=== PATIENT | female | born 2000 | race Caucasian/White ===

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

== ENCOUNTER 2023-02-04 09:21 | Emergency (ER) | payer OTHER, SELFPAY ==
[2023-02-04 09:22] VITALS: BP 120/76; PULSE 107; RESP 18; TEMP 36.6; O2SAT 100
[2023-02-04 10:33] LABS: Basophils Percent Auto 0.6 % (0.2-1.2); Eosinophils Absolute Auto 0.1 K/mm3 (0-0.3); Eosinophils Percent Auto 0.8 % (0-4.4); Hemoglobin 11.1 g/dL (12.0-15.0); Immature Granulocyte Absolute 0.01 K/mm3 (0.00-0.031); Immature Granulocyte Percent A 0.2 % (0-0.5); Lymphocytes Absolute Auto 3.93 K/mm3 (0.9-3.2); Lymphocytes Percent Auto 61.1 % (18.3-44.2); Mean Corpuscular HGB Conc 31.7 g/dl (32-36); Mean Corpuscular Hemoglobin 27.3 pg (26-34); Mean Corpuscular Volume 86.2 fl (80-100); Mean Platelet Volume 8.4 fl (7.4-10.4); Monocytes Absolute Auto 0.6 K/mm3 (0.1-0.6); Neutrophils Absolute Auto 1.8 K/mm3 (1.3-6.7); Neutrophils Percent Auto 27.3 % (45.5-73.1); Platelet Count Result 277 k/mm3 (150-375); Red Blood Count 4.06 M/mm3 (4.2-5.4); Red Cell Distribution Width 15.7 % (11.5-14.5); White Blood Count 6.4 K/mm3 (4.5-10.0)
[2023-02-04 10:38] LABS: Alanine Aminotransferase 15 U/L (6-35); Albumin Level 4.1 g/dL (3.5-5.1); Alkaline Phosphatase 68 U/L (38-126); Anion Gap 6 mmol/L (8-16); Aspartate Amino Transferase 24 U/L (14-36); Bilirubin,Total 0.5 mg/dL (0.2-1.3); Blood Urea Nitrogen 14 mg/dL (7-17); Calcium 8.6 mg/dL (8.4-10.2); Carbon Dioxide 28 mmol/L (22-30); Chloride 104 mmol/L (98-107); Estimated CRCL calculation 94 ml/min; Estimated Glomerular Filt Rate > 60; Glucose 83 mg/dL (65-110); Potassium 3.9 mmol/L (3.4-5.0); Prothrombin Time 13.8 Seconds (11.1-14.7); Sodium 138 mmol/L (137-145)
--- NOTE | 2023-02-04 10:39 | ED.FEMALEGU ---
HPI - Female Genitourinary General Chief complaint: Vaginal Bleeding Stated complaint: preg, vag bleeding Time Seen by Provider: 02/04/23 09:30 History of Present Illness HPI Narrative: 22-year-old female present to the emergency department for evaluation of vaginal bleeding. Patient reports that she has had positive home pregnancies since 01/21. Patient began having some abdominal cramping and vaginal bleeding this morning. Patient states she had the cramping that started about 830 and at 9 AM she had a large amount of blood that she passed. Patient states since then the cramping has resolved and patient is having no significant bleeding. Related Data Home Medications Medication Instructions Recorded Confirmed [id number] 1 mg 1 tablet PO DAILY 01/15/21 12/26/21 tablet dexamethasone 6 mg tablet 6 mg PO DAILY 12/21/21 12/21/21 escitalopram oxalate 10 mg tablet 10 mg PO DAILY 12/21/21 12/21/21 ursodiol 300 mg capsule 300 mg PO BID 12/21/21 12/21/21 Allergies Allergy/AdvReac Type Severity Reaction Status Date / Time latex Allergy Unknown Other Verified 02/04/23 10:14 Review of Systems Review of Systems: All systems reviewed & are unremarkable except as noted in HPI and below PMFSH Past Medical History Medical History (Updated 02/04/23 @ 12:25 by Santana Andre MD) ADHD Bipolar disorder Chlamydia Depression Family History Family History (Updated 01/18/21 @ 17:14 by Meghan Allen RN) Mother Breast cancer Cervical cancer Father Diabetes mellitus Lung cancer Prostate carcinoma Grandparent Heart & renal disease, hypertensive benign with chronic kidney disease Social History Social History Smoking status: Current every day smoker Tobacco type: e-cigarettes/vaping Second hand tobacco smoke exposure: Yes Substance use: never Spiritual care concerns: No Exam Narrative: APPEARANCE: Well appearing, no pain, no distress, well-nourished. HEAD: normocephalic, atraumatic. EYES: PERRLA/EOMI, conjunctivae clear. NOSE: Normal no drainage NECK: Supple. No adenopathy, no masses. RESPIRATORY: Airway patent, respirations nonlabored. Clear to auscultation bilaterally, no rales, rhonchi, wheezing. CARDIOVASCULAR: Regular rate and rhythm without murmurs rubs or gallops. ABDOMINAL: Soft, suprapubic tenderness to palpation Pelvic: Small amount of blood in the vaginal vault, normal-appearing cervix, no evidence of injury and no rapid refilling MUSCULOSKELETAL: Moves all extremities. Strength/ROM intact, No edema, No calf tenderness. NEURO: Alert. Cranial nerves II through XII intact. Grossly intact SKIN: Warm, dry. Normal Color Course Course Emergency Course: 22-year-old female to the ED for evaluation of vaginal bleeding with a home test. Patient reports pain that has resolved and patient's bleeding has improved. Patient's bedside and beta hCG were negative. Patient is afebrile and leukocytosis. Patient hemoglobin is stable 11.1. No significant abnormalities on the patient's CMP. Urine was contaminated with blood, urine culture is pending. Patient was updated the results of her work-up was encouraged of close follow-up with RADIOLOGY CLERK. All question concerns were addressed and patient was well-appearing at time of discharge. Suspect menstrual bleeding versus early miscarriage. With negative to low concern for ectopic but patient was encouraged of close follow-up with RADIOLOGY CLERK Vital Signs Vital signs: Vital Signs Temperature 97.9 F 02/04/23 09:22 Pulse Rate 107 H 02/04/23 09:22 Respiratory Rate 18 02/04/23 09:22 Blood Pressure 120/76 02/04/23 09:22 Pulse Oximetry 100 02/04/23 09:22 Oxygen Delivery Room Air 02/04/23 09:22 Temperature 97.9 F 02/04/23 09:22 Pulse Rate 83 02/04/23 11:27 Respiratory Rate 16 02/04/23 11:27 Blood Pressure 101/86 02/04/23 11:27 Pulse Oximetry 100 02/04/23 11:27 Oxygen
[2023-02-04 10:54] LABS: Beta HCG Quantitative < 2.39 mIU/ML
[2023-02-04 10:55] LABS: Appearance Urine Turbid (Clear); Bacteria Urine 1+ /hpf; Color Urine Red (Yellow); Need Manual Microscopic Reviewed; Non Pathogenic Casts 0-2; RBC Urine >100 /hpf (0-2); Squamous Epithelial Cell Urine Many /hpf (Few); WBC Urine 21-50 /hpf
[2023-02-04 11:01] LABS: Add Urine Microscopic? YES
[2023-02-04 11:27] VITALS: BP 101/86; PULSE 83; RESP 16; O2SAT 100
== END 2023-02-04 12:36 | disposition home or self-care (01) ==
PROVIDERS: Emergency Provider Emergency Medicine
DX: N93.9 Abnormal uterine and vaginal bleeding, unspecified (principal); F17.290 Nicotine dependence, other tobacco product, uncomplicated; F90.9 Attention-deficit hyperactivity disorder, unspecified type; F32.A Depression, unspecified
CPT/HCPCS: 36415; 80053; 81001; 81025; 84702; 85025; 85610; 85730; 87077; 87086; 87088; 87186; 99283

== ENCOUNTER 2023-05-24 10:46 | Emergency (ER) | payer SELFPAY ==
--- NOTE | ~2023-05-24 | US_ITS ---
CORRECTED REPORT corrected examination description [facility] [place]27[place]23 This report was recreated on 05/27/23. Original report was D CUTTER EXAMINATION: US OB <= 14 weeks fetus w TV DATE: 05/24/2023 13:48 INDICATION: Vaginal bleeding during first trimester TECHNIQUE: Real-time pelvic ultrasound utilizing both a transvaginal and transabdominal probe was performed. The interpreting radiologist was not present for the study. COMPARISON: None. FINDINGS: The uterus measures 10.0 x 5.5 x 6.0 cm. There is an intrauterine gestational sac. A yolk sac and pole are identified. The crown rump length measures 4- 5 mm, which correlates with an estimated gestational age of 6 weeks and 1 days. heart motion is identified measuring 85 beats per minute (bpm) by M-mode Doppler. Minimal amount of anechoic fluid within the endocervical canal measuring up to 1 mm in maximal thickness. The right ovary measures 2.4 x 1.6 x 2.6 cm. The left ovary measures 6.2 x 2.3 x 5.8 cm. 2.9 cm thick-walled centrally anechoic likely corpus luteum cyst in the left ovary with prominent peripheral vascular flow on color Doppler. On cine imaging in the transverse plane there is a single thin partial internal septation. A slightly smaller 2.2 cm thick-walled and peripherally hypervascular likely corpus luteum cyst in the left ovary. There is no free fluid in the pelvis. IMPRESSION: 1. Single living fetus with heart rate of 85 bpm. 2. Gestational age by ultrasound of 6 weeks 1 day(s) +/- 4 day(s) with ultrasound estimated date of delivery (JOSIE) of 01/16/2024. Reviewed, dictated and finalized at location A. D CUTTER MTDD IMPRESSION: 1. Single living fetus with heart rate of 85 bpm. 2. Gestational age by ultrasound of 6 weeks 1 day(s) +/- 4 day(s) with ultraso und estimated date of delivery (JOSIE) of 01/16/2024.
[2023-05-24 10:58] VITALS: BP 113/64; PULSE 97; RESP 18; TEMP 36.5; O2SAT 100
[2023-05-24 11:25] LABS: Basophils Percent Auto 0.5 % (0.2-1.2); Eosinophils Percent Auto 0.5 % (0-4.4); Hematocrit 34.3 % (37.0-47.0); Hemoglobin 11.1 g/dL (12.0-15.0); Immature Granulocyte Absolute 0.01 K/mm3 (0.00-0.031); Immature Granulocyte Percent A 0.2 % (0-0.5); Lymphocytes Absolute Auto 2.21 K/mm3 (0.9-3.2); Lymphocytes Percent Auto 34.1 % (18.3-44.2); Mean Corpuscular HGB Conc 32.4 g/dl (32-36); Mean Corpuscular Volume 86.6 fl (80-100); Mean Platelet Volume 8.8 fl (7.4-10.4); Monocytes Absolute Auto 0.6 K/mm3 (0.1-0.6); Monocytes Percent Auto 9.2 % (2.6-8.5); Neutrophils Absolute Auto 3.6 K/mm3 (1.3-6.7); Neutrophils Percent Auto 55.5 % (45.5-73.1); Platelet Count Result 287 k/mm3 (150-375); Red Blood Count 3.96 M/mm3 (4.2-5.4); Red Cell Distribution Width 13.8 % (11.5-14.5); White Blood Count 6.5 K/mm3 (4.5-10.0)
--- NOTE | 2023-05-24 11:41 | ED.FEMALEGU ---
HPI - Female Genitourinary General Chief complaint: Vaginal Bleeding Stated complaint: 7 weeks preg, spotting Time Seen by Provider: 05/24/23 11:02 Source: patient Mode of arrival: ambulatory Limitations: no limitations History of Present Illness HPI Narrative: 23-year-old female presenting for concerns for vaginal bleeding and abdominal pain in . She is 7 weeks she reports over the last 2 days she has had some intermittent cramping abdominal pain left lower quadrant. She was make sure it is not an ectopic . Also had some light vaginal spotting over the last day or so. No other complaints. She also wants some STD testing but denies any discharge from some light bleeding Related Data Home Medications Medication Instructions Recorded Confirmed [id number] 1 mg 1 tablet PO DAILY 01/15/21 12/26/21 tablet dexamethasone 6 mg tablet 6 mg PO DAILY 12/21/21 12/21/21 escitalopram oxalate 10 mg tablet 10 mg PO DAILY 12/21/21 12/21/21 ursodiol 300 mg capsule 300 mg PO BID 12/21/21 12/21/21 Allergies Allergy/AdvReac Type Severity Reaction Status Date / Time latex Allergy Unknown Other Verified 02/04/23 10:14 Review of Systems Review of Systems: All systems reviewed & are unremarkable except as noted in HPI and below (HPI) PMFSH Past Medical History Medical History ADHD Bipolar disorder Chlamydia Depression Family History Family History Mother Breast cancer Cervical cancer Father Diabetes mellitus Lung cancer Prostate carcinoma Grandparent Heart & renal disease, hypertensive benign with chronic kidney disease Social History Social History Smoking status: Current every day smoker Tobacco type: e-cigarettes/vaping Second hand tobacco smoke exposure: Yes Substance use: never Spiritual care concerns: No Exam Narrative: Constitutional: Generally well appearing, no acute distress Head: Atraumatic, no deformities. Eyes: Pupils equal, round, and reactive to light. Neck: Supple, no tracheal deviation, no JVD. ENMT: Mucous membranes moist Cardiovascular: S1, S2 auscultated. No murmurs, rubs, or gallops. No S3/S4. Normal Distal pulses. No peripheral edema. Respiratory: Lung sounds equal. No wheezes, rales, or rhonchi. Gastrointestinal: Abdomen was soft with very mild tenderness in the left lower quadrant. Non-distended. No rebound or guarding. Genitourinary: Deferred Musculoskeletal: Normal muscle tone and bulk. No obvious deformities or tenderness over extremities. Skin: No rashes. Neurological: Strength 5/5 in extremities. Cranial nerves I-XII grossly intact. Distal sensation intact. Mental Status: Awake, alert and oriented x3. Follows commands Course Vital Signs Vital signs: Vital Signs Temperature 36.5 C 05/24/23 10:58 Pulse Rate 97 05/24/23 10:58 Respiratory Rate 18 05/24/23 10:58 Blood Pressure 113/64 05/24/23 10:58 Pulse Oximetry 100 05/24/23 10:58 Oxygen Delivery Room Air 05/24/23 10:58 Temperature 36.5 C 05/24/23 10:58 Pulse Rate 118 H 05/24/23 12:07 Respiratory Rate 18 05/24/23 10:58 Blood Pressure 107/41 L 05/24/23 12:07 Pulse Oximetry 100 05/24/23 10:58 Oxygen Delivery Room Air 05/24/23 10:58 MDM - Female Genitourinary MDM Narrative Medical decision making narrative: 23-year-old female presenting for concerns for ectopic . Approximately 7 weeks based on last menstrual. Has some intermittent left lower quadrant abdominal cramping. Exam shows normal vitals, some very mild tenderness in the left lower quadrant. Deferred pelvic exam patient. Concern for miscarriage, ectopic . Obtaining ultrasound pelvic, quantitative HCG, Rh blood typing, CBC. Also obtained gonorrhea and chlamydia urine swabs at patient's
[2023-05-24 12:05] VITALS: BP 105/55; PULSE 86
[2023-05-24 12:06] VITALS: BP 106/55; PULSE 96
[2023-05-24 12:07] VITALS: BP 107/41; PULSE 118
--- NOTE | 2023-05-24 12:12 | PC.NURSE ---
Attempted heart tones for 5 minutes. Able to get readings of 203, 178, and 160 for 5seconds, unable to confirm with counting for 1 minute. Pt aware of results and aware of US order for confirmation.
[2023-05-24 13:54] LABS: Chlamydia trachomatis NOT DETECTED (NOT DETECTE); Neisseria gonorrhoeae PCR NOT DETECTED (NOT DETECTE)
[2023-05-24 14:49] VITALS: BP 102/67; PULSE 99; RESP 18; O2SAT 100
== END 2023-05-24 14:50 | disposition home or self-care (01) ==
PROVIDERS: Emergency Provider Emergency Medicine
DX: O20.0 Threatened abortion (principal); O99.341 Other mental disorders complicating pregnancy, first trimester; F90.9 Attention-deficit hyperactivity disorder, unspecified type; F31.9 Bipolar disorder, unspecified; O99.331 Smoking (tobacco) complicating pregnancy, first trimester; F17.290 Nicotine dependence, other tobacco product, uncomplicated; Z3A.01 Less than 8 weeks gestation of pregnancy
CPT/HCPCS: 36415; 76801; 76817; 84702; 85025; 85461; 86850; 86900; 86901; 87491; 87591; 99284

== ENCOUNTER 2023-10-04 07:02 | Emergency (ER) | payer OTHER, SELFPAY ==
[2023-10-04 07:01] VITALS: BP 96/63; PULSE 93; RESP 18; TEMP 36.8; O2SAT 100
[2023-10-04 07:31] LABS: Basophils Percent Auto 0.3 % (0.2-1.2); Eosinophils Percent Auto 0.3 % (0-4.4); Hematocrit 28.2 % (37.0-47.0); Hemoglobin 8.9 g/dL (12.0-15.0); Immature Granulocyte Absolute 0.07 K/mm3 (0.00-0.031); Immature Granulocyte Percent A 1.2 % (0-0.5); Lymphocytes Percent Auto 32.8 % (18.3-44.2); Mean Corpuscular HGB Conc 31.6 g/dl (32-36); Mean Corpuscular Hemoglobin 27.3 pg (26-34); Mean Corpuscular Volume 86.5 fl (80-100); Mean Platelet Volume 8.3 fl (7.4-10.4); Monocytes Absolute Auto 0.5 K/mm3 (0.1-0.6); Neutrophils Absolute Auto 3.3 K/mm3 (1.3-6.7); Neutrophils Percent Auto 56.4 % (45.5-73.1); Platelet Count Result 224 k/mm3 (150-375); Red Blood Count 3.26 M/mm3 (4.2-5.4); Red Cell Distribution Width 13.3 % (11.5-14.5); White Blood Count 5.8 K/mm3 (4.5-10.0)
[2023-10-04 07:40] LABS: Alanine Aminotransferase 9 U/L (6-35); Albumin Level 3.5 g/dL (3.5-5.1); Alkaline Phosphatase 65 U/L (38-126); Anion Gap 6 mmol/L (4-12); Aspartate Amino Transferase 19 U/L (14-36); Bilirubin,Total 0.4 mg/dL (0.2-1.3); Blood Urea Nitrogen 5 mg/dL (7-17); Calcium 8.3 mg/dL (8.4-10.2); Carbon Dioxide 23 mmol/L (22-30); Chloride 106 mmol/L (98-107); Estimated CRCL calculation 134 ml/min; Estimated Glomerular Filt Rate > 60; Glucose 75 mg/dL (65-110); Potassium 3.7 mmol/L (3.4-5.0); Sodium 135 mmol/L (137-145)
[2023-10-04 08:20] LABS: Appearance Urine Cloudy (Clear); Bacteria Urine 1+ /hpf; Bilirubin Urine Negative (Negative); Blood Urine Negative (Negative); Color Urine Dark Yellow (Yellow); Glucose Urine UA Negative (Negative); Ketones Urine Negative (Negative); Leukocyte Esterase Ur 2+ LEU/UL (Negative); Need Manual Microscopic Reviewed; Nitrate Urine Negative (Negative); Non Pathogenic Casts 0-2; Protein Urine Trace mg/dL (Negative); RBC Urine 0-2 /hpf (0-2); Specific Grav Ur 1.022 (1.001-1.035); Squamous Epithelial Cell Urine Many /hpf (Few); WBC Urine 51-100 /hpf (0-3); pH Urine 6.5 (5.0-9.0)
[2023-10-04 08:27] LABS: Add Urine Microscopic? YES
--- NOTE | 2023-10-04 09:02 | ED.GENADULT ---
HPI - General Adult General Chief complaint: Extremity Problem,Nontraumatic Stated complaint: numb legs Time Seen by Provider: 10/04/23 07:11 Source: patient Mode of arrival: ambulatory Limitations: no limitations History of Present Illness HPI narrative: 23-year-old 2 para 1 about 25 weeks of gestation was brought in from work place with a complains of bilateral leg numbness. Patient states that she went to work was standing on her feet and she fell both the legs were numb. She also stated that she was short of breath. Upon arrival to the ER her symptoms completely resolved. She denies any fever or chills no history of nausea or vomiting. She works at [employer]. Related Data Home Medications Medication Instructions Recorded Confirmed [id number]-[id number]-[id number] 1 mg 1 tablet PO DAILY 01/15/21 10/04/23 tablet Allergies Allergy/AdvReac Type Severity Reaction Status Date / Time latex Allergy Unknown Other Verified 10/04/23 07:06 Review of Systems Review of Systems: All systems reviewed & are unremarkable except as noted in HPI and below Constitutional: Constitutional: Reports no additional constitutional complaints Eyes: Eyes: Reports no additional eye complaints ENT: Reports system reviewed and no additional complaints, except as documented Cardiovascular: Cardiovascular: Reports no additional cardiovascular complaints Respiratory: Respiratory: Reports no additional respiratory complaints Gastrointestinal: Gastrointestinal: Reports no additional gastrointestinal complaints Musculoskeletal: Musculoskeletal: Reports as per HPI Neurologic: Reports system reviewed and no additional complaints, except as documented Psychiatric: Psychiatric: Reports no additional psychiatric complaints PMFSH Past Medical History Medical History ADHD Bipolar disorder Chlamydia Depression Family History Family History Mother Breast cancer Cervical cancer Father Diabetes mellitus Lung cancer Prostate carcinoma Grandparent Heart & renal disease, hypertensive benign with chronic kidney disease Social History Social History Smoking status: Current every day smoker Tobacco type: e-cigarettes/vaping Second hand tobacco smoke exposure: Yes Substance use: never Spiritual care concerns: No Exam Narrative: GENERAL: Well-appearing, well-nourished, and in no acute distress. HEAD: Normocephalic, atraumatic. EYES: PERRLA and EOMI. ENT: Nares clear, no rhinorrhea or epistaxis. Mucous membranes moist. NECK: Supple. CHEST: Clear to auscultation. No respiratory distress. HEART: Regular rate and rhythm. No murmur heard. Normal peripheral pulses. ABDOMEN: Soft, nontender, gravid abdomen EXTREMITIES: Normal range of motion. No edema. SKIN: Warm, dry, no rash. NEURO: No focal deficits. Alert and oriented x3. PSYCH: Normal mood and affect. Course Course Emergency Course: Patient feeling much better. She feels comfortable going home. She was ambulatory. Vital Signs Vital signs: Vital Signs Temperature 36.8 C 10/04/23 07:01 Pulse Rate 93 10/04/23 07:01 Respiratory Rate 18 10/04/23 07:01 Blood Pressure 96/63 L 10/04/23 07:01 Pulse Oximetry 100 10/04/23 07:01 Oxygen Delivery Room Air 10/04/23 07:01 Temperature 36.8 C 10/04/23 07:01 Pulse Rate 99 10/04/23 09:14 Respiratory Rate 16 10/04/23 09:14 Blood Pressure 130/75 10/04/23 09:14 Pulse Oximetry 100 10/04/23 09:14 Oxygen Delivery Room Air 10/04/23 07:01 Medical Decision Making Vital Signs Vital Signs: Vital Signs Temperature 36.8 C 10/04/23 07:01 Pulse Rate 93 10/04/23 07:01 Respiratory Rate 18 10/04/23 07:01 Blood Pressure 96/63 L 10/04/23 07:01 Pulse Oximetry 100 10/04/23 07:01 Oxygen Delivery Room Air
[2023-10-04 09:14] VITALS: BP 130/75; PULSE 99; RESP 16; O2SAT 100
== END 2023-10-04 09:15 | disposition home or self-care (01) ==
PROVIDERS: Emergency Provider Family Medicine
DX: O26.892 Other specified pregnancy related conditions, second trimester (principal); R20.0 Anesthesia of skin; O99.332 Smoking (tobacco) complicating pregnancy, second trimester; F17.290 Nicotine dependence, other tobacco product, uncomplicated; Z3A.25 25 weeks gestation of pregnancy
CPT/HCPCS: 36415; 80053; 81001; 85025; 87086; 87088; 99283

== ENCOUNTER 2023-10-26 15:09 | Outpatient (RCR) | payer OTHER, SELFPAY ==
[2023-10-26 16:11] VITALS: BP 100/59; PULSE 100
== END 2024-01-24 23:59 | disposition home or self-care (01) ==
LOC: ANHOBOP 15:09
PROVIDERS: Visit Provider Advanced Practice Midwife
DX: O36.8130 Decreased fetal movements, third trimester, not applicable or unspecified (principal); Z3A.27 27 weeks gestation of pregnancy
CPT/HCPCS: 59025

== ENCOUNTER 2024-01-01 09:20 | Inpatient (IN) | payer OTHER, SELFPAY ==
[2024-01-01] VITALS (40 sets, daily range): BP systolic 77–113; BP diastolic 35–74; PULSE 59–104; RESP 12–20; TEMP 36.4–36.6; O2SAT 99–100; BMI 26.6
--- NOTE | 2024-01-01 09:20 | LDADM ---
This patient, Apple Simms, was admitted to Labor/Delivery/Recovery 120 on 01/01/24 at 09:20. Plans for labor, pain management and were discussed with patient. Patient/family oriented to hospital policies and general routines including ID bracelet, bed and alarms, visiting hours, pain management, procedures, bathroom and other care routines, personal items, smoking policy, room service/diet and guest tray routines, infant security routines, and visiting hours. Patient/Family are encouraged to report perceived risks to care and to ask questions if they do not understand what they are told or what they should do. See OBIX for further documentation.
[2024-01-01 09:53] LABS: Basophils Percent Auto 0.4 % (0.2-1.2); Eosinophils Percent Auto 0.4 % (0-4.4); Hematocrit 34.1 % (37.0-47.0); Hemoglobin 10.5 g/dL (12.0-15.0); Immature Granulocyte Absolute 0.18 K/mm3 (0.00-0.031); Immature Granulocyte Percent A 2.1 % (0-0.5); Lymphocytes Absolute Auto 2.09 K/mm3 (0.9-3.2); Lymphocytes Percent Auto 24.5 % (18.3-44.2); Mean Corpuscular HGB Conc 30.8 g/dl (32-36); Mean Corpuscular Hemoglobin 25.9 pg (26-34); Mean Platelet Volume 8.7 fl (7.4-10.4); Monocytes Absolute Auto 0.8 K/mm3 (0.1-0.6); Monocytes Percent Auto 9.1 % (2.6-8.5); Neutrophils Absolute Auto 5.4 K/mm3 (1.3-6.7); Neutrophils Percent Auto 63.5 % (45.5-73.1); Platelet Count Result 211 k/mm3 (150-375); Red Blood Count 4.06 M/mm3 (4.2-5.4); Red Cell Distribution Width 22.7 % (11.5-14.5); White Blood Count 8.5 K/mm3 (4.5-10.0)
[2024-01-01] MEDS: ACETAMINOPHEN 500 MG TABLET 1000 MG PO (09:56)
[2024-01-01] MEDS: LACTATED RINGERS 1,000 ML 125 ML IV CONT ×2 (09:57→11:19)
[2024-01-01 10:29] LABS: Anisocytosis 1+; Macrocytosis 1+ (NORMAL); Platelet Estimate Adequate (Adequate); Schistocytes None Seen
[2024-01-01 10:43] LABS: HIV 1/2 Ab P24 Ag Result Negative (Negative)
[2024-01-01 11:12] LABS: Rapid Plasma Reagin Non-Reactive (NonReactive)
--- NOTE | 2024-01-01 11:27 | WPDANESEPPF ---
Anes - Initial Pre Proc Eval Procedure: Operation Date: 01/01/24 12:00 Proposed Procedures p Repeat Section - Willi Haney MD Date/Time: 01/01/24 11:27 Surgeon: Willi Haney MD Pre Op Diagnosis: Repeat Section Patient Data Age: 23 Gender: F Height: 1.68 m Weight: 75 kg Last Vital Signs Pulse 82 01/01/24 11:15 BP 108/63 01/01/24 11:15 Allergies Allergy/AdvReac Type Severity Reaction Status Date / Time latex Allergy Unknown Other Verified 12/31/23 10:41 Home Medications Medication Instructions Recorded Confirmed Type whptcgmh-uwy-[id number]-FA 1 mg 1 tablet PO DAILY 01/15/21 01/01/24 History tablet albuterol 90 mcg/actuation aerosol 90 mcg inhalation Q4H 12/05/23 01/01/24 History inhaler cyclobenzaprine 10 mg tablet 10 mg PO TID PRN Pain 12/05/23 01/01/24 History diphenhydramine HCl 25 mg capsule 50 mg PO HS PRN Insomnia 12/05/23 01/01/24 History (Benadryl) lurasidone 20 mg tablet 20 mg PO DAILY 12/05/23 01/01/24 History ursodiol 300 mg capsule 300 mg PO BID 12/05/23 01/01/24 History Laboratory Tests 01/01/24 09:48 WBC 8.5 K/mm3 (4.5-10.0) RBC 4.06 L M/mm3 (4.2-5.4) Hgb 10.5 L g/dL (12.0-15.0) Hct 34.1 L % (37.0-47.0) MCV 84.0 fl (80-100) MCH 25.9 L pg (26-34) MCHC 30.8 L g/dl (32-36) RDW 22.7 H % (11.5-14.5) Plt Count 211 k/mm3 (150-375) MPV 8.7 fl (7.4-10.4) Immature Gran % (Auto) 2.1 H % (0-0.5) Neut % (Auto) 63.5 % (45.5-73.1) Lymph % (Auto) 24.5 % (18.3-44.2) [place] % (Auto) 9.1 H % (2.6-8.5) Eos % (Auto) 0.4 % (0-4.4) Baso % (Auto) 0.4 % (0.2-1.2) Lymph # (Auto) 2.09 K/mm3 (0.9-3.2) [place] # (Auto) 0.8 H K/mm3 (0.1-0.6) Eos # (Auto) 0.0 K/mm3 (0-0.3) Baso # (Auto) 0.0 K/mm3 (0.0-0.1) Abs Immat Gran (auto) 0.18 H K/mm3 (0.00-0.031) Absolute Neuts (auto) 5.4 K/mm3 (1.3-6.7) Absolute Nucleated RBC 0.000 K/mm3 (0.0-0.012) Nucleated RBC % 0.0 % (0.0-0.2) Platelet Estimate Adequate (Adequate) Anisocytosis 1+ Macrocytosis 1+ (NORMAL) Schistocytes None seen RPR Non-reactive (NonReactive) HIV 1&2 Ab/P24 Ag 4thGn Negative (Negative) Blood Type O Positive Antibody Screen Negative Patient hx anesthesia problems: none Family hx anesthesia problems: none Results Review: All pre-operative results and documents have been reviewed as part of the pre-operative evaluation. [facility] Past Medical History Medical History ADHD Bipolar disorder Chlamydia Depression Family History Family History Mother Breast cancer Cervical cancer Father Diabetes mellitus Lung cancer Prostate carcinoma Grandparent Heart & renal disease, hypertensive benign with chronic kidney disease Social History Social History Years smoked: 3 Smoking status: Current every day smoker Tobacco type: e-cigarettes/vaping Second hand tobacco smoke exposure: Yes Substance use: former Do You Feel Safe in your Home?: Yes Lack of Transportation: No Lack of Food: Never True Current Housing: I Have Housing Concerned About Future Housing: No Difficulty Paying Gas/Electric Bills: No Difficulty Paying for Meds: No Currently Unemployed: No Education: Grade School Difficulty w/ Childcare or Family Care: No Spiritual care concerns: No Anes - Eval Final PreProcedure Day of Procedure 01/01/24 11:27 Patient weight: normal Heart: regular rate and rhythm Lungs: clear to auscultation Airway: Mallampati scale class II Neurological: alert and oriented Last oral intake: >/= 8 hours ASA classification: II Emergent: no Anesthetic plan: proceed Anesthesia type and monitor
[2024-01-01] MEDS: ONDANSETRON INJ 4 MG/2 ML VIAL IV PUSH (11:28)
[2024-01-01] MEDS: FAMOTIDINE 20 MG/2 ML VIAL IV PUSH (11:28)
--- NOTE | 2024-01-01 11:29 | WPDHPUPDATE1 ---
History and Physical Update Update Date/Time: 01/01/24 11:29 History and Physical has been reviewed, including an updated exam of the patient. There are NO changes in the patient's condition. Risks, benefits, and alternatives have been discussed and questions answered. Patient agrees to proceed with procedure.
--- NOTE | 2024-01-01 11:29 | PM.IMHP ---
H&P: HPI History of Present Illness Date/Time: 01/01/24 11:29 Chief Complaint: Term Narrative: 23-year-old multiparous female at term with previous deliveries. We have agreed to perform repeat .delivery The patient understands the details of the procedure. The procedure has been explained in detail. She understands the risks. She understands that injuries may occur that result in hospitalization, more surgery, and severe illness. She understands risk of hemorrhage and infection. She denies any chest pain or shortness of breath. She denies any nausea, vomiting, fever, chills. Review of Systems Review of Systems: All systems reviewed & are unremarkable except as noted in HPI and below Constitutional: Constitutional: Denies chills, Denies fatigue, Denies fever(s) and Denies weakness Eyes: Eyes: Denies blurry vision, Denies change in vision, Denies loss of peripheral vision, Denies loss of vision, Denies other visual disturbances and Denies eye pain ENT: Denies vertigo, Denies dizziness, Denies hearing loss, Denies mouth pain, Denies nasal obstruction, Denies neck mass and Denies neck pain Cardiovascular: Cardiovascular: Denies chest pain, Denies diaphoresis, Denies syncope, Denies leg edema and Denies dyspnea Respiratory: Respiratory: Denies chest congestion, Denies cough, Denies hemoptysis, Denies dyspnea and Denies wheezing Gastrointestinal: Gastrointestinal: Denies abdominal pain, Denies constipation, Denies diarrhea, Denies nausea and Denies vomiting Genitourinary: Genitourinary: Denies hematuria, Denies change in libido, Denies nocturia, Denies genital lesions, Denies flank pain and Denies urinary urgency Musculoskeletal: Musculoskeletal: Denies abnormal gait, Denies back pain, Denies myalgias, Denies arthralgias, Denies joint swelling, Denies muscle weakness and Denies neck pain Integumentary/Breasts: Skin/Breast: Denies swelling, Denies breast pain, Denies breast mass, Denies dry skin, Denies nipple discharge, Denies unusual bruising and Denies jaundice Neurologic: Denies Neuro-related abnormal movements, Denies Abnormal speech present, Denies abnormal gait, Denies behavioral changes, Denies confusion, Denies vertigo, Denies dizziness, Denies syncope, Denies loss of vision, Denies memory loss, Denies convulsions and Denies weakness Psychiatric: Psychiatric: Denies abnormal sleep pattern, Denies behavioral changes, Denies change in libido, Denies confusion, Denies depression, Denies anhedonia and Denies memory loss Endocrine: Endocrine: Reports no additional endocrine complaints, Denies change in libido and Denies fatigue Hematologic/Lymphatic: Hematologic/Lymphatic: Reports no additional hematologic/lymphatic complaints Allergic/Immunologic: Allergic/Immunologic: Reports no additional allergic/immunologic complaints and Denies wheezing PMFSH Past Medical History Medical History ADHD Bipolar disorder Chlamydia Depression Family History Family History Mother Breast cancer Cervical cancer Father Diabetes mellitus Lung cancer Prostate carcinoma Grandparent Heart & renal disease, hypertensive benign with chronic kidney disease Social History Social History Years smoked: 3 Smoking status: Current every day smoker Tobacco type: e-cigarettes/vaping Second hand tobacco smoke exposure: Yes Substance use: former Do You Feel Safe in your Home?: Yes Lack of Transportation: No Lack of Food: Never True Current Housing: I Have Housing Concerned About Future Housing: No Difficulty Paying Gas/Electric Bills: No Difficulty Paying for Meds: No Currently Unemployed: No Education: Grade School Difficulty w/ Childcare or Family Care: No Spiritual care concerns: No Meds Home Medic
[2024-01-01] MEDS: ceFAZolin 2 GM/D5W 50 ML 2 GM/50 ML BAG IVPB (12:01)
[2024-01-01] MEDS: OXYTOCIN 30 UNITS/NS 500 ML 30 UNITS/500 ML BAG 125 UNITS IV CONT (13:57)
--- NOTE | 2024-01-01 15:07 | OBPPTRN ---
Patient transferred to post room #286 via stretcher. Support person present. Oriented to unit, room, information board, rooming in, admission packet and security measures. Patient verbalizes understanding.
[2024-01-01] MEDS: KETOROLAC 15 MG/ML VIAL (*BKC) IV PUSH ×2 (16:23→22:28)
[2024-01-01] MEDS: ACETAMINOPHEN 325 MG TABLET 650 MG PO ×2 (16:23→22:28)
[2024-01-01] MEDS: SIMETHICONE 80 MG TAB.CHEW PO (16:23)
[2024-01-01] MEDS: DOCUSATE SODIUM 100 MG CAPSULE PO (16:24)
[2024-01-01] MEDS: DEXTROSE 5%/0.45% SOD CHL 1,000 ML 125 ML IV CONT (18:26)
[2024-01-01] MEDS: HYDROcodone/acetaminophen (*CRX) 5-325 MG TABLET 1 TAB PO (21:35)
[2024-01-01] MEDS: LIDOCAINE 5% PATCH 1 PATCH TRANSDERM (21:35)
[2024-01-02 04:20] VITALS: BP 98/70; PULSE 80; RESP 16; TEMP 36.7; O2SAT 100
[2024-01-02] MEDS: ACETAMINOPHEN 325 MG TABLET 650 MG PO ×4 (04:32→23:57)
[2024-01-02] MEDS: KETOROLAC 15 MG/ML VIAL (*BKC) IV PUSH (04:32)
[2024-01-02 05:26] LABS: Basophils Percent Auto 0.2 % (0.2-1.2); Eosinophils Percent Auto 0.4 % (0-4.4); Hematocrit 27.8 % (37.0-47.0); Hemoglobin 8.8 g/dL (12.0-15.0); Immature Granulocyte Absolute 0.12 K/mm3 (0.00-0.031); Immature Granulocyte Percent A 1.1 % (0-0.5); Lymphocytes Absolute Auto 2.24 K/mm3 (0.9-3.2); Lymphocytes Percent Auto 21.3 % (18.3-44.2); Mean Corpuscular HGB Conc 31.7 g/dl (32-36); Mean Corpuscular Hemoglobin 26.6 pg (26-34); Mean Platelet Volume 9.3 fl (7.4-10.4); Monocytes Absolute Auto 1.2 K/mm3 (0.1-0.6); Monocytes Percent Auto 11.5 % (2.6-8.5); Neutrophils Absolute Auto 6.9 K/mm3 (1.3-6.7); Neutrophils Percent Auto 65.5 % (45.5-73.1); Platelet Count Result 179 k/mm3 (150-375); Red Blood Count 3.31 M/mm3 (4.2-5.4); Red Cell Distribution Width 22.5 % (11.5-14.5); White Blood Count 10.5 K/mm3 (4.5-10.0)
[2024-01-02 07:30] VITALS: BP 112/69; PULSE 95; RESP 16; TEMP 36.6; O2SAT 100
[2024-01-02] MEDS: POLYSACCHARIDE IRON COMPLEX 150 MG CAPSULE PO ×2 (08:19→16:35)
[2024-01-02] MEDS: MULTIVIT/MIN/PREN/FOL AC/IRON TABLET 1 TAB PO (08:19)
[2024-01-02] MEDS: DOCUSATE SODIUM 100 MG CAPSULE PO ×2 (08:19→16:35)
[2024-01-02] MEDS: SIMETHICONE 80 MG TAB.CHEW PO ×3 (08:19→16:35)
--- NOTE | 2024-01-02 08:24 | PM.OBPNVD ---
OB - PN: Subj Subjective Date/time seen: 01/02/24 08:24 Patient comments: no complaints, pain well controlled, tolerating diet and flatus present OB - PN: Obj Data Labs 01/02/24 04:25 Labs: Laboratory Results - last 24 hr 01/01/24 01/02/24 09:48 04:25 WBC 8.5 10.5 H RBC 4.06 L 3.31 L Hgb 10.5 L 8.8 L Hct 34.1 L 27.8 L MCV 84.0 84.0 MCH 25.9 L 26.6 MCHC 30.8 L 31.7 L RDW 22.7 H 22.5 H Plt Count 211 179 MPV 8.7 9.3 Immature Gran % (Auto) 2.1 H 1.1 H Neut % (Auto) 63.5 65.5 Lymph % (Auto) 24.5 21.3 [place] % (Auto) 9.1 H 11.5 H Eos % (Auto) 0.4 0.4 Baso % (Auto) 0.4 0.2 Lymph # (Auto) 2.09 2.24 [place] # (Auto) 0.8 H 1.2 H Eos # (Auto) 0.0 0.0 Baso # (Auto) 0.0 0.0 Abs Immat Gran (auto) 0.18 H 0.12 H Absolute Neuts (auto) 5.4 6.9 H Absolute Nucleated RBC 0.000 0.000 Nucleated RBC % 0.0 0.0 Platelet Estimate Adequate Anisocytosis 1+ Macrocytosis 1+ Schistocytes None seen RPR Non-reactive HIV 1&2 Ab/P24 Ag 4thGn Negative Blood Type O Positive Antibody Screen Negative OB - PN A/P Plan day: 1 Comments: Post Op LTCS - no problems, routine recovery Time Spent With Patient Time: Total time spent is greater than 50% in coordination of care (as documented) at patient's floor/unit and/or counseling patient: Exam Const: General: cooperative, healthy appearing, comfortable and no acute distress Resp: Auscultation: no crackles, no rales, no rhonchi and no wheezes Cardio: Rhythm: regular rhythm Heart sounds: no click and no murmurs GI: Inspection: non-distended Auscultation: normal bowel sounds Extrem: General: normal to inspection, no pedal edema and no calf tenderness
--- NOTE | 2024-01-02 09:31 | WPDANLDPN2 ---
Anes-Prog Note L&D Date/Time: 01/02/24 09:31 Comfortable throughout: section Neuraxial method: spinal Epidural/Spinal procedure site: clean & non-tender Neuro status: Neuro function grossly intact. Cardiovascular status: normal Respiratory status: normal Airway patency: baseline Mental status: baseline Post-Op hydration status: normal Vital Signs: Last Vital Signs Temp 36.6 C 01/02/24 07:30 Pulse 95 01/02/24 07:30 Resp 16 01/02/24 07:30 BP 112/69 01/02/24 07:30 Pulse Ox 100 01/02/24 07:30 O2 Del Method Room Air 01/02/24 08:25 Pain score (VAS): 4/10 I/O: Intake & Output 01/01/24 01/02/24 01/02/24 23:59 07:59 15:59 Intake Total 1000 Output Total 400 2450 Balance -400 -1450 Post-procedural complaints: pruritis moderate, treatment effective Patient feedback: Patient satisfied with anesthetic care.
--- NOTE | 2024-01-02 09:31 | WPDANLDNPN2 ---
Anes-Prog Note L&D-Neuraxial Date/Time: 01/02/24 09:31 Neuraxial medications: intrathecal PF morphine Opiod-related complaints: pruritis moderate, treatment effective Patient feedback: Patient satisfied with post-operative pain management.
[2024-01-02] MEDS: HYDROcodone/acetaminophen (*CRX) 5-325 MG TABLET 1 TAB PO ×2 (10:38→17:47)
[2024-01-02 12:27] VITALS: BP 106/71; PULSE 74; RESP 18; TEMP 37.2; O2SAT 100
[2024-01-02] MEDS: IBUPROFEN 600 MG TABLET PO ×2 (16:35→23:57)
[2024-01-02] MEDS: HYDROcodone/acetaminophen (*CRX) 10-325 MG TABLET 1 TAB PO (21:32)
[2024-01-02 21:35] VITALS: BP 107/63; PULSE 86; RESP 18; TEMP 36.6; O2SAT 100
--- NOTE | 2024-01-03 07:43 | PM.OBPNVD ---
OB - PN: Subj Subjective Date/time seen: 01/03/24 07:43 Interval history: pp day 2 bottle feeding flatus present desires d/c OB - PN: Obj Data Labs 01/02/24 04:25 OB - PN A/P Plan day: 2 Plan: routine care and discharge home Time Spent With Patient Time: Total time spent is greater than 50% in coordination of care (as documented) at patient's floor/unit and/or counseling patient: Review of Systems Review of Systems: All systems reviewed & are unremarkable except as noted in HPI and below Exam Const: General: cooperative and healthy appearing Resp: Effort & Inspection: normal respiratory effort Cardio: Rate: regular rate GI: Other: incision CDI Skin: General skin exam: normal color
--- NOTE | 2024-01-03 07:47 | PM.OBDSVD ---
DS: Admitting Diagnosis Discharge Date 01/03/24 Admitting Diagnosis section DS: Discharge Diagnosis Discharge Diagnosis (1) Delivery by elective section: Code(s): O82 - Encounter for delivery without indication Status: Acute OB - DS: Summary OB Procedures : None OB Procedures Intrapartum: OB Procedures: : None Peripartum Data Procedures: Procedures Operation Date: 01/01/24 12:00 Actual Procedure Side Surgeon p Section Willi Haney MD Time Spent with Patient Time attestation: Total time spent providing and/or coordinating discharge services: Discharge Plan Discharge Attending physician on discharge: Willi Haney Discharging Clinician: Carolina Crisostomo Patient Disposition: Home, Self-Care Activity: pelvic rest Diet: regular Patient Instructions: Antibiotic Form Stand Alone Forms: General Discharge Information Follow-up/Referrals: Willi Haney MD [Physician] - 1 Week Discharge Medications: New hydrocodone-acetaminophen 5-325 mg Tablet 1 tablet PO Q3H PRN (Reason: Breakthrough Pain Rated 4-6) 15 Days Qty: 20 0RF Continued cyclobenzaprine 10 mg Tablet 10 mg PO TID PRN (Reason: Pain) diphenhydramine HCl [Benadryl] 25 mg Capsule 50 mg PO HS PRN (Reason: Insomnia) albuterol 90 mcg/actuation Aerosol 90 mcg INHALATION Q4H lurasidone 20 mg Tablet 20 mg PO DAILY Rx Instructions: must administer with food (at least 350 calories) rxltsjgr-nab-Pm-FA 1 mg Tablet 1 tablet PO DAILY Discontinued ursodiol 300 mg Capsule 300 mg PO BID Date of admission: 01/01/24 09:20 Primary Care Provider: UNKNOWN,DOCTOR Admitting Provider: Willi Haney Attending physician on admission: Willi Haney Condition: Stable
[2024-01-03] MEDS: SIMETHICONE 80 MG TAB.CHEW PO ×2 (07:51→13:51)
[2024-01-03] MEDS: IBUPROFEN 600 MG TABLET PO (07:52)
[2024-01-03] MEDS: POLYSACCHARIDE IRON COMPLEX 150 MG CAPSULE PO (07:52)
[2024-01-03] MEDS: ACETAMINOPHEN 325 MG TABLET 650 MG PO ×2 (07:52→13:51)
[2024-01-03] MEDS: DOCUSATE SODIUM 100 MG CAPSULE PO (07:52)
[2024-01-03] MEDS: MULTIVIT/MIN/PREN/FOL AC/IRON TABLET 1 TAB PO (07:53)
[2024-01-03 08:35] VITALS: BP 110/58; PULSE 75; RESP 18; TEMP 36.7; O2SAT 100
--- NOTE | 2024-01-03 12:36 | PCCCNOTE ---
Consult received for mother has a prior DCFS case open. Per LAMBERT Griffith, no concerns at this time with pt. and baby; however, she does have a prior DCFS for other children. Spoke with mother and father/fiance (Adam). Per mother, she has all the needed baby supplies. Mother reports she has an almost 3 year old Gerardo (who she recently got custody back on), a two year old daughter Noé who has special needs (she is in the care of her grandmother, has feeding tube, cerebral palsy). Mother reported her previous DCFS had to do with being an alcoholic, but stated her last drink was on January 23, 2023. Mother reported her compliance and control analyst is Yeni Hernandez. During our conversation, DCFS worker Marian Reyes walked in and stated they are not going to be taking this baby girl and provided women's health care nurse practitioner with Reference #[id number] and aware plan is for mother and baby to be D/C home today. Per Marian, mother's compliance and control analyst Yeni has already been inside the home to observe and they also did safe sleep with mother and at this time they do not have any concerns and LAMBERT Griffith also aware baby girl can D/C home with mother and father. Mother did not voice any resource needs or concerns at this time.
[2024-01-04 14:28] VITALS: BP 120/71; PULSE 100; RESP 18; TEMP 37.1; O2SAT 100
--- NOTE | 2024-01-08 21:31 | W.PM.OBCSD ---
OB - Delivery Note Procedure Delivery date: 01/08/24 Pre-op diagnosis: Previous Delivery Post-op Diagnosis: Same Procedure Performed: Repeat Surgeon: Willi Haney MD Anesthesia type: Spinal Description of Procedure/Findings: The patient was taken the operating room.? She was prepped and draped in dorsal supine position with a leftward tilt.? This was done after spinal anesthetic was applied.? A low-transverse skin incision was made and carried down till of the fascia with the knife.? The fascial incision was made with the knife.? The fascial incision was extended laterally with Dyer scissors.? The fascia was tented upward superiorly and inferiorly the rectus muscles were dissected off bluntly.? The rectus muscles were the midline.? The preperitoneal fat and peritoneum were dissected open bluntly at the superior aspect of the rectus muscles.? The peritoneal incision was extended superior and inferior with good position of bladder.? The uterine incision was made with a scalpel down to the level of the amniotic cavity.? The amniotic cavity was entered bluntly.? The infant was delivered.? The cord was clamped and cut and the infant was handed off to waiting pediatric staff.? Cord bloods were obtained.? The placenta was removed manually.? The uterus was exteriorized.? The uterus was cleared of all clots, debris and membranes.? The uterus was closed in 0 Vicryl running lock fashion.? An imbricating over a was placed along the incision line as well.? The uterus was returned to the abdomen.? The gutters were cleared of all clots and debris.? The fascia was closed with 0 Vicryl running fashion.? The subcutaneous tissue was irrigated pinpoint bleeders were cauterized.? The skin was closed with subcuticular absorbable almaz.? The skin incision line was covered with glue.? The patient tolerated the procedure well.? She has taken recovery room in stable condition.? Sponge lap and needle counts were correct x2.? Urine Output: 400
== END 2024-01-03 14:50 | disposition home or self-care (01) | DRG 540 ==
LOC: ANHLDR 09:28 → ANHOB2 15:08
PROVIDERS: Admitting Provider Obstetrics & Gynecology; Visit Provider Obstetrics & Gynecology
PROC: 10D00Z1 Extraction of Products of Conception, Low, Open Approach (ICD-10-PCS; CPT 59514; principal; 2024-01-01 12:00)
DX: O26.643 Intrahepatic cholestasis of pregnancy, third trimester (principal); Z37.0 Single live birth; Z3A.37 37 weeks gestation of pregnancy; O34.211 Maternal care for low transverse scar from previous cesarean delivery
CPT/HCPCS: 36415; 85025; 86592; 86703; 86850; 86900; 86901; A9270; G0432; J0690; J1885; J2274; J2371; J2405; J2590; J7120